=== PATIENT | male | born 1955 | race Two or more races ===

== ENCOUNTER 2017-05-08 09:19 | Emergency (ER) | payer SELFPAY ==
[2017-05-08 09:23] VITALS: BP 137/78; PULSE 83; TEMP 97.8; BMI 22.8
[2017-05-08] MEDS ORDERED: KETOROLAC TROMETHAMINE 60 MG/2 ML VIAL IM ONE (10:36)
[2017-05-08] MEDS ORDERED: KETOROLAC TROMETHAMINE 60 MG/2 ML VIAL ONE (10:37)
--- NOTE | 2017-05-08 10:58 | PDOC ---
History of Present Illness - General Chief Complaint: Edema Stated Complaint: SWOLLEN RT HAND Time Seen by Provider: 05/08/17 09:40 History Source: Patient Exam Limitations: No Limitations - History of Present Illness Initial Comments: 05/08/17 10:51 Patient is a 62-year-old male with history of rheumatoid arthritis currently on no medication reports that he lost his insurance 5 months ago and was receiving injections for the rheumatoid arthritis and has not received medication or injection since. Once with flareup of RA has had same pain not this intensity to the right hand in the past. Pain started at 12 AM, woke up today with edema to right hand. Denies trauma. There is no erythema. No induration. No evidence of cellulitis. Patient is afebrile. Past Medical History: Rheumatoid arthritis Allergies: No known allergies Medications: None Family History: Non-contributory Social History: Denies smoking, alcohol use, or IVDU Review of Systems GENERAL/CONSTITUTIONAL: No fever or chills. No weakness. No weight change. HEAD, EYES, EARS, NOSE AND THROAT: No change in vision. No ear pain or discharge. No sore throat. CARDIOVASCULAR: No chest pain or shortness of breath. RESPIRATORY: No cough, wheezing, or hemoptysis. GASTROINTESTINAL: No nausea, vomiting, diarrhea or constipation. No rectal bleeding. GENITOURINARY: No dysuria, frequency, or change in urination. MUSCULOSKELETAL: No joint or muscle swelling or pain. No neck or back pain. SKIN: No rash or easy bruising. +4 nonpitting edema to right hand Physical Exam: GENERAL: The patient is awake, alert, and fully oriented, in no acute distress. EYES: Pupils equal, round and reactive to light, extraocular movements intact, sclera anicteric, conjunctiva clear. ENT: Ears normal, nares patent, oropharynx clear without exudates. Moist mucous membranes. No uvula deviation NECK: Normal range of motion, supple without lymphadenopathy, JVD, or masses. LUNGS: Breath sounds equal, clear to auscultation bilaterally. No wheezes, and no crackles. HEART: Regular rate and rhythm, normal S1 and S2 without murmur, rub or gallop. ABDOMEN: Soft, nontender, normoactive bowel sounds. No guarding, no rebound. No masses. No bruising or abrasions RECTAL : Guaiac negative, normal rectal tone. MUSCULOSKELETAL: Normal range of motion, no edema. No clubbing or cyanosis. No cords, erythema, or tenderness. No CVA Tenderness with fist. NEUROLOGICAL: Cranial nerves II through XII grossly intact. Normal speech, normal gait. SKIN: Warm, Dry, normal turgor, no rashes or lesions noted. +4 nonpitting Edema to right hand. There are no open lesions to my no erythema, no warmth, no streaking, no bruising, no evidence of injury or cellulitis. Past History - Past Medical History Allergies/Adverse Reactions: Allergies Allergy/AdvReac Type Severity Reaction Status Date / Time No Known Allergies Allergy Verified 05/08/17 09:20 Home Medications: Ambulatory Orders No Home Medications 0 dose .ROUTE UTDICT 03/23/13 Methylprednisolone [Medrol Dose Eduardo] 4 mg PO ASDIR #21 tablet 05/08/17 Oxycodone HCl/Acetaminophen [Percocet 5-325 mg Tablet] 1 tab PO Q4H #20 tablet MDD 6 05/08/17 CVA: Yes (TIA 2006) HTN: Yes Other medical history: RHEUMOTOID ARTHRITIS. - Surgical History Abdominal Surgery: Yes (HERNIA.) - Suicide/Smoking/Psychosocial Hx Smoking Status: Yes Smoking History: Current every day smoker Have you smoked in the past 12 months: Yes Number of Cigarettes Smoked Daily: 5 Information on smoking cessation initiated: No Hx Alcohol Use: No Drug/Substance Use Hx: No *Physical Exam - Vital Signs Last Vital Signs Temp Pulse Resp BP Pulse Ox 97.8 F 83 18 137/78 98 05/08/17 09:19 05/08/17 09:19 05/08/17 09:19 05/08/17 09:19 05/08/17 09:19 ED Treatment Course - RADIOLOGY Radiology Studies Ordered: Category Date Time Status HAND- RIGHT [RAD] Stat Radiology 05/08/17 09:45 Completed - Medications Given in the ED: ED Medications Discontinued Medications Generic Name Dose Route Start Last Admin Trade Name Freq PRN Reason Stop Dose Admin Ketorolac Tromethamine 60 mg 05/08/17 10:36 05/08/17 10:40 Toradol Injection - IM 05/08/17 10:37 60 mg ONCE ONE Administration Medical Decision Making - Medical Decision Making 05/08/17 10:54 A/P: Patient with nontraumatic edema to right hand. No pain to elbow, forearm or upper arm.Patient sent to x-ray, showed soft tissue edema with no evidence of acute fracture dislocation. Inflammatory process must likely exacerbation from rheumatoid arthritis. Toradol 60 mg IM times one given, will DC patient on pain control and Medrol Dosepak, follow up at [facility] to start treatment for rheumatoid arthritis. Arm sling given to rest arm. Information given to patient, he verbalized understanding. I discussed the physical exam findings, ancillary test results and final diagnoses with the patient. I answered all of the patient's questions. The patient was satisfied with the care received and felt comfortable with the discharge plan and treatment plan. The patient will call to arrange follow-up and will return to the Emergency Department with any new, persistent or worsening symptoms. *DC/Admit/Observation/Transfer Diagnosis at time of Disposition: History of rheumatoid arthritis Hand swelling Qualifiers: Laterality: right Qualified Code(s): M79.89 - Other specified soft tissue disorders - Discharge Dispostion Disposition: HOME Condition at time of disposition: Good Admit: No - Prescriptions Prescriptions: Methylprednisolone [Medrol Dose Eduardo] 4 mg PO ASDIR #21 tablet Oxycodone HCl/Acetaminophen [Percocet 5-325 mg Tablet] 1 tab PO Q4H #20 tablet MDD 6 - Referrals Referrals: Jase Segura MD [Primary Care Provider] - [facility] [Provider Group] (Make an appointment today to follow-up ) - Patient Instructions Printed Discharge Instructions: Rheumatoid Arthritis (Alternative Therapy) Additional Instructions: Recommend follow-up at [facility], please call today to make an appointment.
== END 2017-05-08 11:06 | disposition home or self-care (01) ==
LOC: JERFT 09:19 → SUPCPDRO 09:19 → JERFT 11:06
PROC: 3E0233Z Introduction of Anti-inflammatory into Muscle, Percutaneous Approach (ICD-10-PCS; principal; 2017-05-08)
DX: M79.89 Other specified soft tissue disorders (principal); M06.80 Other specified rheumatoid arthritis, unspecified site; I10 Essential (primary) hypertension; Z86.73 Personal history of transient ischemic attack (TIA), and cerebral infarction without residual deficits
CPT/HCPCS: 73130-TC-RT; 99281-25

== ENCOUNTER 2019-05-24 09:56 | Day surgery (SDC) | payer OTHER ==
[2019-05-23 16:16] VITALS: BMI 23.2
[2019-05-24 12:09] VITALS: TEMP 97.5
[2019-05-24 13:30] VITALS: BP 124/92; PULSE 98
--- NOTE | 2019-05-25 17:25 | PATH ---
Surgical Pathology Report Patient Name: JESSICA WILLSON [facility]. Rec. #: [id number] /Age/Gender: 1955 (Age: 64) / M Account: [id number] Location: U-ENDOSCOPY Taken: 05/24/2019 Received: 05/24/2019 Reported: 05/25/2019 Physicians: Artie Laura D.O. Specimen(s) Received A: POLYP PROXIMAL TRANSVERSE B: POLYP RIGHT COLON C: POLYP HEPATIC FLEXURE D: SIGMOID POLYPS Clinical History Screening for malignant neoplasm Postoperative diagnosis: Colon polyps, hemorrhoids Final Diagnosis A. PROXIMAL TRANSVERSE COLON, POLYP, POLYPECTOMY: TUBULAR ADENOMA. B. COLON, RIGHT, POLYP, POLYPECTOMY: TUBULAR ADENOMA. C. COLON, HEPATIC FLEXURE, POLYP, BIOPSY: TUBULAR ADENOMA. D. SIGMOID POLYPS, BIOPSY: TUBULAR ADENOMA(S). Electronically Signed Ingris Copeland M.D. Gross Description A. Received in formalin, labeled "polyp proximal transverse colon" is a pacheco, irregular portion of soft tissue measuring 0.3 cm. in greatest dimension. The specimen is submitted in toto in one cassette. B. Received in formalin, labeled "right colon polyp" are 2 pacheco, irregular portions of soft tissue measuring 0.4 and 0.5 cm. in greatest dimension. The specimens are submitted in toto in one cassette. C. Received in formalin, labeled "polyp hepatic flexure" is a pacheco, irregular portion of soft tissue measuring 0.4 cm. in greatest dimension. The specimen is submitted in toto in one cassette. D. Received in formalin, labeled "biopsy sigmoid polyps" are 2 pacheco, irregular portions of soft tissue measuring 0.2 and 0.3 cm. in greatest dimension. The specimens are submitted in toto in one cassette. 05/24/201905/24/2019
== END 2019-05-24 13:20 | disposition home or self-care (01) ==
LOC: JASU-ENDO 09:56
PROVIDERS: ATTEND Internal Medicine Gastroenterology
PROC: 0DBN8ZX Excision of Sigmoid Colon, Via Natural or Artificial Opening Endoscopic, Diagnostic (ICD-10-PCS; 2019-05-24)
PROC: 0DBL8ZX Excision of Transverse Colon, Via Natural or Artificial Opening Endoscopic, Diagnostic (ICD-10-PCS; 2019-05-24)
PROC: 3E0H8GC Introduction of Other Therapeutic Substance into Lower GI, Via Natural or Artificial Opening Endoscopic (ICD-10-PCS; 2019-05-24)
PROC: 0DBF8ZX Excision of Right Large Intestine, Via Natural or Artificial Opening Endoscopic, Diagnostic (ICD-10-PCS; principal; 2019-05-24 10:45)
DX: Z12.11 Encounter for screening for malignant neoplasm of colon (principal); D12.5 Benign neoplasm of sigmoid colon; D12.3 Benign neoplasm of transverse colon; K64.8 Other hemorrhoids
CPT/HCPCS: 88305-TC

== ENCOUNTER 2022-03-17 10:21 | Emergency (ER) | payer OTHER ==
[2022-03-17 10:33] VITALS: RESP 17; BMI 22.6
[2022-03-17 14:55] LABS: BASO % 0.8 % (0-2.0); EOS % 4.1 % (0-4.5); HEMATOCRIT 43.4 % (35.4-49); HEMOGLOBIN 14.7 GM/dL (11.7-16.9); LYMPH % 20.8 % (8-40); MCHC 33.8 g/dl (32.0-35.9); MEAN CELL VOLUME 97.5 fl (80-96); MEAN PLT VOLUME 9.2 fl (7.5-11.1); MONO % 10.9 % (3.8-10.2); NEUT % 63.4 % (42.8-82.8); PLATELET COUNT 243 10^3/uL (134-434); RBC 4.45 M/mm3 (4.00-5.60); RDW 12.9 % (11.9-15.9); WHITE BLOOD COUNT 8.1 K/mm3 (4.0-10.0)
[2022-03-17 16:09] LABS: CALCIUM 8.9 mg/dL (8.5-10.1)
[2022-03-17 16:10] LABS: ALBUMIN 3.3 g/dl (3.4-5.0); BLOOD UREA NITROGEN 12.8 mg/dL (7-18)
[2022-03-17 16:12] LABS: CREATININE 0.9 mg/dL (0.55-1.3)
[2022-03-17 16:13] LABS: BILIRUBIN,TOTAL 0.5 mg/dL (0.2-1)
[2022-03-17 16:15] LABS: TOT PROT 6.6 g/dl (6.4-8.2)
[2022-03-17 18:33] VITALS: BP 144/95; PULSE 61; TEMP 98.3
== END 2022-03-17 19:21 | disposition home or self-care (01) ==
LOC: JER 10:21
DX: K52.9 Noninfective gastroenteritis and colitis, unspecified (principal); R19.7 Diarrhea, unspecified
CPT/HCPCS: 36415; 74177-TC; 80053; 85025; 99291

== ENCOUNTER 2023-03-23 10:14 | Emergency (ER) | payer OTHER ==
[2023-03-23 10:20] VITALS: BP 140/81; PULSE 68; RESP 20; TEMP 98.2; BMI 22.8
[2023-03-23] MEDS ORDERED: ALBUTEROL SO4 HFA INHALER IH ONE ×2 (11:13→11:17)
[2023-03-23] MEDS ORDERED: DOXYCYCLINE HYCLATE 100 MG CAPSULE PO ONE ×2 (11:53→11:55)
== END 2023-03-23 11:52 | disposition home or self-care (01) ==
LOC: JERFT 10:14 → JER 10:14 → JERFT 11:52
DX: R05.9 Cough, unspecified (principal); R09.81 Nasal congestion; R50.9 Fever, unspecified; J40 Bronchitis, not specified as acute or chronic; Z20.822 Contact with and (suspected) exposure to COVID-19
CPT/HCPCS: 0241U-QW; 71046-TC-FY; 99284-25

== ENCOUNTER 2023-11-27 09:08 | Emergency (ER) | payer OTHER ==
[2023-11-27 09:18] VITALS: BP 136/65; PULSE 107; RESP 18; TEMP 98.4; BMI 22.6
[2023-11-27] MEDS ORDERED: DEXAMETHASONE SOD PHOSPHATE 10 MG/1 ML VIAL ONE (09:47)
[2023-11-27] MEDS: DEXAMETHASONE SOD PHOSPHATE 10 MG/1 ML VIAL IM ONE (09:55)
== END 2023-11-27 10:47 | disposition home or self-care (01) ==
LOC: JERFT 09:08
PROC: 3E023GC Introduction of Other Therapeutic Substance into Muscle, Percutaneous Approach (ICD-10-PCS; principal; 2023-11-27)
PROC: 3E023GC Introduction of Other Therapeutic Substance into Muscle, Percutaneous Approach (ICD-10-PCS; 2023-11-27)
DX: L50.9 Urticaria, unspecified (principal); R21 Rash and other nonspecific skin eruption
CPT/HCPCS: 96372; 99284-25; J1100